=== PATIENT | male | born 1995 | race Caucasian/White ===

== ENCOUNTER 2018-01-25 18:43 | Emergency (ER) | payer OTHER ==
[2018-01-25 19:01] VITALS: BP 115/80
[2018-01-25] MEDS ORDERED: CEPHALEXIN 500 MG CAP PO ONE (19:44)
--- NOTE | 2018-01-25 19:44 | EDPHY ---
H & P Smoking Status: Former smoker Time Seen by Provider: 01/25/18 19:27 HPI/ROS: CHIEF COMPLAINT: Right thumb injury HISTORY OF PRESENT ILLNESS: 22-year-old [id number] male with up-to- date tetanus was at work when he sustained a crush injury to the distal phalanx of his right thumb in a chain like object. Complaining of pain to the distal phalanx of the right thumb as well as puncture wound. PHYSICAL EXAM (Prior to examination, patient consented to physical exam, hands were washed and my usual and customary physical exam procedures followed) 1) GENERAL: Well-developed, well-nourished, alert and oriented. Appears to be in no acute distress. 2) HEAD: Normocephalic 3) HEENT: sclera anicteric 4) LUNGS: Breathing comfortably. 5) SKIN: Right thumb distal phalanx distal portion of the nail measuring approximately 3 mm there is a nail laceration with possible nail bed laceration. No signs of infection. Negative kanavel 6) MUSCULOSKELETAL: Flexor extensor function at the MCP and IP are intact no deficits 7) NEUROLOGIC: Full sensation two-point discrimination intact distally (Blayne Packer) Constitutional: Initial Vital Signs Temperature (C) 37.1 C 01/25/18 18:59 Heart Rate 76 01/25/18 18:59 Respiratory Rate 18 01/25/18 18:59 Blood Pressure 115/80 01/25/18 18:59 O2 Sat (%) 96 01/25/18 18:59 O2 Delivery Mode Room Air Allergies/Adverse Reactions: No Known Allergies Allergy (Verified 01/25/18 18:58) Home Medications: Medication Instructions Recorded Cephalexin [Keflex] 500 mg PO TID 5 Days cap 01/25/18 MDM/Departure - MDM Imaging Results: Imaging Impressions Finger X-Ray 01/25/18 19:02 Impression: 1. No acute osseous abnormality seen right thumb. Images reviewed myself (Blayne Packer) Medications Given: Discontinued Medications Cephalexin HCl (Keflex) 500 mg PO EDNOW ONE PRN Reason: Protocol Stop: 01/25/18 19:45 Last Admin: 01/25/18 19:51 Dose: 500 mg ED Course/Re-evaluation: Re-evaluation with serial exams. Digital nerve block for pain control administered by myself with 1% plain lidocaine. I recommended nail removal to evaluate the nail bed for possible laceration. He declines this. Starting the patient on prophylactic antibiotics, sterile dressing applied, follow up with Hand surgery on-call Dr. John Hoyt. Usual customary wound precautions instructions provided. Care of patient under supervision of secondary supervising physician Dr Neves . (Birdie,Blayne Jessica) - Depart Disposition: Home, Routine, Self-Care Clinical Impression: Laceration of right thumb Qualifiers: Encounter type: initial encounter Damage to nail status: with damage Foreign body presence: without foreign body Qualified Code(s): S61.111A - Laceration without foreign body of right thumb with damage to nail, initial encounter Condition: Good Instructions: Crush Injury (ED) Additional Instructions: Return to the ER if you develop redness, swelling, discharge, warmth to the wound, red streaks going up your arm, or any other symptoms that concern you. Prescriptions: Cephalexin [Keflex] 500 mg PO TID 5 Days cap Referrals: John Hoyt MD [Medical Doctor] - 1-2 days without fail
== END 2018-01-25 20:40 | disposition home or self-care (01) ==
PROC: 3E0T3BZ Introduction of Anesthetic Agent into Peripheral Nerves and Plexi, Percutaneous Approach (ICD-10-PCS; principal; 2018-01-25)
DX: S61.111A Laceration without foreign body of right thumb with damage to nail, initial encounter (principal); W23.0XXA Caught, crushed, jammed, or pinched between moving objects, initial encounter